=== PATIENT | male | born 1960 | race African-American/Black ===

== ENCOUNTER 2018-06-02 16:16 | Inpatient (IN) | payer MEDICAID, OTHER ==
[~2018-06-02] VITALS: Ht 190.5 cm; Wt 140.6 kg
[2018-06-02] MEDS ORDERED: LISI10TA5 PO (16:35)
[2018-06-02] MEDS ORDERED: TRAZ-213 PO (16:35)
[2018-06-02] MEDS ORDERED: HYDR25TA PO (16:35)
[2018-06-02] MEDS ORDERED: BUPR100T13 PO (16:36)
[2018-06-02] MEDS ORDERED: ASPIRIN 81MG TABLET PO ONE (17:15)
[2018-06-02] MEDS ORDERED: NITROGLYCERIN OINT 1GM/INCH UDPKT TD ONE (17:15)
[2018-06-02] MEDS ORDERED: FUROSEMIDE 40MG/4ML VIAL IV ONE (17:15)
[2018-06-02 18:11] LABS: BASOPHILS % 1.1 % (0.0-2.0); EOSINOPHILS % 3.2 % (0.0-5.0); HEMATOCRIT. 52.3 % (42.0-52.0); HEMOGLOBIN. 17.5 g/dL (14.0-18.0); LYMPHOCYTES % 23.9 % (20.0-50.0); MEAN CORPUSCULAR HEMOGLOBIN 30.4 pg (28.0-32.0); MEAN CORPUSCULAR VOLUME 91.1 fL (80.0-94.0); MEAN PLATELET VOLUME 9.1 fl (7.4-10.4); MONOCYTES % 9.3 % (2.0-8.0); NEUTROPHILS % 62.5 % (40.0-76.0); PLATELET 216 x1000/uL (130-400); RED BLOOD CELL COUNT 5.74 mill/uL (4.7-6.1); RED CELL DISTRIBUTION WIDTH 14.5 % (11.6-14.6)
[2018-06-02 18:14] LABS: CHLORIDE 103 mEq/L (98-107)
[2018-06-02 18:16] LABS: PARTIAL THROMBOPLASTIN TIME 26.9 sec (23.4-31.0); PROTHROMBIN TIME 9.7 sec (9.1-11.1)
[2018-06-02] MEDS ORDERED: ONDANSETRON HCL 4MG/2ML INJ IV PRN (19:30)
[2018-06-02] MEDS ORDERED: HYDROCODONE/ACETAMINOPHEN 5/325MG TABLET PO PRN (19:30)
[2018-06-02] MEDS ORDERED: DOCUSATE SODIUM 100MG CAPSULE PO PRN (19:30)
[2018-06-02] MEDS ORDERED: IPRATROPIUM/ALBUTEROL 0.5-3(2.5)MG/3ML NEB INH PRN (19:30)
[2018-06-02] MEDS ORDERED: LORAZEPAM 0.5MG TABLET PO PRN (19:30)
[2018-06-02] MEDS ORDERED: ACETAMINOPHEN 325MG TABLET PO PRN (19:30)
[2018-06-02 20:10] LABS: PHOSPHORUS 4.1 mg/dL (2.5-4.9)
[2018-06-02 20:11] LABS: LDL CHOLESTEROL 99 mg/dL (5-100)
[2018-06-02 20:13] LABS: CREATINE KINASE 82 IU/L (39-308); HDL CHOLESTEROL 66 mg/dL (40-59)
[2018-06-02 20:15] LABS: CREATINE KINASE MB FRACTION < 1.0 ng/mL (0.5-3.6)
[2018-06-02 20:33] LABS: CLARITY URINE CLEAR (CLEAR); COLOR URINE YELLOW (YELLOW); KETONES URINE NEGATIVE (NEGATIVE); LEUKOCYTE ESTERASE URINE NEGATIVE (NEGATIVE); NITRITE URINE NEGATIVE (NEGATIVE); OCCULT BLOOD URINE NEGATIVE (NEGATIVE); PH URINE 5.5 (4.5-8.0); PROTEIN URINE NEGATIVE (NEGATIVE); SPECIFIC GRAVITY URINE 1.013 (1.005-1.030); UROBILINOGEN URINE 0.2 E.U./dL (0.2-1.0)
[2018-06-02 20:41] LABS: METHADONE URINE SCREEN NEGATIVE (NEGATIVE); OPIATES URINE SCREEN NEGATIVE (NEGATIVE)
[2018-06-02 20:42] LABS: *AMPHETAMINES SCREEN URINE PRESUMTIVE POSITIVE (NEGATIVE); *BARBITURATES SCREEN URINE NEGATIVE (NEGATIVE); *BENZODIAZEPINES SCREEN URINE NEGATIVE (NEGATIVE); *COCAINE SCREEN URINE NEGATIVE (NEGATIVE); CANNABINOID URINE SCREEN PRESUMTIVE POSITIVE (NEGATIVE); PHENCYCLIDINE URINE SCREEN NEGATIVE (NEGATIVE)
[2018-06-03 01:39] VITALS: BP 137/87
[2018-06-03 04:00] VITALS: BP 160/105
[2018-06-03] MEDS: CLONIDINE 0.1MG TABLET PO PRN ×2 (06:02→20:51)
[2018-06-03 07:45] LABS: CHLORIDE 103 mEq/L (98-107)
[2018-06-03 07:52] LABS: BASOPHILS % 0.9 % (0.0-2.0); EOSINOPHILS % 3.6 % (0.0-5.0); HEMATOCRIT. 49.1 % (42.0-52.0); HEMOGLOBIN. 16.6 g/dL (14.0-18.0); LYMPHOCYTES % 22.8 % (20.0-50.0); MEAN CORPUSCULAR HEMOGLOBIN 30.6 pg (28.0-32.0); MEAN CORPUSCULAR VOLUME 90.6 fL (80.0-94.0); MEAN PLATELET VOLUME 9.2 fl (7.4-10.4); MONOCYTES % 9.3 % (2.0-8.0); NEUTROPHILS % 63.4 % (40.0-76.0); PLATELET 213 x1000/uL (130-400); RED BLOOD CELL COUNT 5.42 mill/uL (4.7-6.1); RED CELL DISTRIBUTION WIDTH 14.6 % (11.6-14.6)
[2018-06-03 08:00] VITALS: BP 168/101
[2018-06-03 12:00] VITALS: BP 131/95
[2018-06-03] MEDS: LISINOPRIL 10MG TABLET PO SCH (15:33)
[2018-06-03] MEDS ORDERED: ENOXAPARIN 60MG/0.6ML SYR SUBCUT SCH (15:45)
[2018-06-03 16:00] VITALS: BP 167/114
[2018-06-03] MEDS ORDERED: BUPROPION HCL 100MG TABLET PO SCH (16:00)
[2018-06-03] MEDS: BUPROPION HCL 150MG TABLET XL 24HR PO SCH (17:36)
[2018-06-03 20:00] VITALS: BP 171/122
[2018-06-03] MEDS: POTASSIUM CHLORIDE 20MEQ TABLET SR PO SCH (20:51)
[2018-06-03] MEDS: FUROSEMIDE 40MG/4ML VIAL IVP SCH (20:52)
[2018-06-03] MEDS: TRAZODONE HCL 100MG TABLET PO SCH (20:52)
[2018-06-03] MEDS: ENOXAPARIN 40MG/0.4ML SYR SUBCUT SCH (20:53)
[2018-06-04 00:02] VITALS: BP 139/85
[2018-06-04 03:55] VITALS: BP 135/89
[2018-06-04] MEDS: FUROSEMIDE 40MG/4ML VIAL IVP SCH ×2 (06:13→18:04)
[2018-06-04 08:00] VITALS: BP 127/100
[2018-06-04] MEDS: POTASSIUM CHLORIDE 20MEQ TABLET SR PO SCH ×2 (09:20→18:03)
[2018-06-04] MEDS: LISINOPRIL 10MG TABLET PO SCH (09:21)
[2018-06-04] MEDS: BUPROPION HCL 150MG TABLET XL 24HR PO SCH (09:21)
[2018-06-04] MEDS: ENOXAPARIN 40MG/0.4ML SYR SUBCUT SCH ×2 (09:22→21:19)
[2018-06-04 12:00] VITALS: BP 149/102
[2018-06-04 16:00] VITALS: BP 124/77
[2018-06-04 19:18] LABS: CHLORIDE 103 mEq/L (98-107)
[2018-06-04 20:00] VITALS: BP 156/97
[2018-06-04] MEDS: TRAZODONE HCL 100MG TABLET PO SCH (21:19)
[2018-06-05] VITALS: BP 113/84
[2018-06-05 04:00] VITALS: BP 137/80
[2018-06-05] MEDS: FUROSEMIDE 40MG/4ML VIAL IVP SCH (07:34)
[2018-06-05 08:00] VITALS: BP 117/87
[2018-06-05] MEDS: POTASSIUM CHLORIDE 20MEQ TABLET SR PO SCH (08:57)
[2018-06-05] MEDS: LISINOPRIL 10MG TABLET PO SCH (08:58)
[2018-06-05] MEDS: BUPROPION HCL 150MG TABLET XL 24HR PO SCH (08:58)
[2018-06-05] MEDS: ENOXAPARIN 40MG/0.4ML SYR SUBCUT SCH (08:59)
[2018-06-05 09:25] LABS: CHLORIDE 103 mEq/L (98-107)
[2018-06-05 12:00] VITALS: BP 149/96
[2018-06-05] MEDS ORDERED: POTA20TA82 PO (12:10)
[2018-06-05] MEDS ORDERED: FURO-151 MT (12:10)
[2018-06-05 12:29] VITALS: BP 149/96
== END 2018-06-05 13:07 | disposition home or self-care (01) | DRG 194 ==
LOC: ER 16:16 → EDBEDREQTM 19:29 → EDBEDREQ 19:29 → ENRESERV 23:38 → 7WST 06-03 00:12
PROVIDERS: ADMIT Internal Medicine; ATTEND Internal Medicine
DX: I11.0 Hypertensive heart disease with heart failure (principal); I27.20 Pulmonary hypertension, unspecified; E66.9 Obesity, unspecified; I50.33 Acute on chronic diastolic (congestive) heart failure; E78.00 Pure hypercholesterolemia, unspecified; F12.90 Cannabis use, unspecified, uncomplicated; F15.90 Other stimulant use, unspecified, uncomplicated; E78.5 Hyperlipidemia, unspecified; R07.9 Chest pain, unspecified; Z71.51 Drug abuse counseling and surveillance of drug abuser; Z79.899 Other long term (current) drug therapy; Z68.38 Body mass index [BMI] 38.0-38.9, adult
CPT/HCPCS: 36415; 71045; 80048; 80061; 80305; 82550; 82553; 83036; 83735; 83880; 84100; 84443; 84484; 85379; 93005; 93306; 94640; 96374; 99285; J1650; J1940; J7620

== ENCOUNTER 2019-06-13 15:41 | Inpatient (IN) | payer MEDICAID ==
[~2019-06-13] VITALS: Ht 190.5 cm; Wt 148.9 kg
[~2019-06-13 15:41] MED LIST: BUPR100T13 PO; FURO-151 MT; GABA-531 PO; LISI-604 PO; POTA20TA82 PO; TRAZ-252 PO
[2019-06-13 16:34] LABS: BASOPHILS % 0.8 % (0.0-2.0); EOSINOPHILS % 1.3 % (0.0-5.0); HEMATOCRIT. 46.8 % (42.0-52.0); HEMOGLOBIN. 15.3 g/dL (14.0-18.0); LYMPHOCYTES % 20.2 % (20.0-50.0); MEAN CORPUSCULAR HEMOGLOBIN 29.5 pg (28.0-32.0); MEAN CORPUSCULAR VOLUME 90.1 fL (80.0-94.0); MEAN PLATELET VOLUME 8.7 fl (7.4-10.4); MONOCYTES % 9.6 % (2.0-8.0); NEUTROPHILS % 68.1 % (40.0-76.0); PLATELET 213 x1000/uL (130-400); RED CELL DISTRIBUTION WIDTH 14.5 % (11.6-14.6)
[2019-06-13 16:39] LABS: CHLORIDE 110 mEq/L (98-107)
[2019-06-13] MEDS ORDERED: FUROSEMIDE 40MG/4ML VIAL IV ONE (17:30)
[2019-06-13] MEDS ORDERED: ASPIRIN 81MG TABLET PO ONE (17:30)
[2019-06-14 09:30] VITALS: BP 174/98
[2019-06-14 10:03] VITALS: BP 148/108
[2019-06-14] MEDS ORDERED: FLUT1BLS3 IH (10:43)
[2019-06-14] MEDS ORDERED: ACETAMINOPHEN 325MG TABLET PO PRN (11:30)
[2019-06-14] MEDS ORDERED: GUAIFENESIN 200MG/10ML SUGAR FREE UDC PO PRN (11:30)
[2019-06-14] MEDS ORDERED: CLONIDINE 0.1MG TABLET PO PRN (11:30)
[2019-06-14] MEDS ORDERED: ENOXAPARIN 40MG/0.4ML SYR SUBCUT SCH (11:30)
[2019-06-14] MEDS ORDERED: IPRATROPIUM/ALBUTEROL 0.5-3(2.5)MG/3ML NEB NEB PRN (11:30)
[2019-06-14] MEDS ORDERED: ONDANSETRON HCL 4MG/2ML INJ IV PRN (11:30)
[2019-06-14] MEDS: GABAPENTIN 300MG CAPSULE PO SCH (11:53)
[2019-06-14] MEDS: LISINOPRIL 20MG TABLET PO SCH ×2 (11:54→21:19)
[2019-06-14] MEDS: ENOXAPARIN 40MG/0.4ML SYR SUBCUT SCH (11:54)
[2019-06-14 12:00] VITALS: BP 169/114
[2019-06-14] MEDS: BUPROPION HCL 150MG SR TABLET PO SCH (13:55)
[2019-06-14 16:00] VITALS: BP 136/103
[2019-06-14 16:34] LABS: CREATINE KINASE 133 IU/L (39-308)
[2019-06-14 16:36] LABS: CREATINE KINASE MB FRACTION 1.1 ng/mL (0.5-3.6)
[2019-06-14] MEDS: FUROSEMIDE 40MG/4ML VIAL IVP SCH (16:55)
[2019-06-14 20:00] VITALS: BP 134/84
[2019-06-14] MEDS: TRAZODONE HCL 50MG TABLET PO SCH (21:18)
[2019-06-14 23:29] LABS: CREATINE KINASE 147 IU/L (39-308)
[2019-06-14 23:30] LABS: CREATINE KINASE MB FRACTION < 1.0 ng/mL (0.5-3.6)
[2019-06-15] VITALS: BP 127/88
[2019-06-15] MEDS: ENOXAPARIN 40MG/0.4ML SYR SUBCUT SCH ×2 (00:10→13:05)
[2019-06-15 04:00] VITALS: BP 153/96
[2019-06-15 07:49] LABS: CHLORIDE 103 mEq/L (98-107)
[2019-06-15 08:00] VITALS: BP 132/87
[2019-06-15 08:04] LABS: BASOPHILS % 0.6 % (0.0-2.0); EOSINOPHILS % 2.5 % (0.0-5.0); HEMATOCRIT. 45.3 % (42.0-52.0); HEMOGLOBIN. 15.2 g/dL (14.0-18.0); LYMPHOCYTES % 23.4 % (20.0-50.0); MEAN CORPUSCULAR HEMOGLOBIN 30.4 pg (28.0-32.0); MEAN CORPUSCULAR VOLUME 90.6 fL (80.0-94.0); MEAN PLATELET VOLUME 9.5 fl (7.4-10.4); MONOCYTES % 9.5 % (2.0-8.0); PLATELET 212 x1000/uL (130-400)
[2019-06-15] MEDS: FUROSEMIDE 40MG/4ML VIAL IVP SCH ×2 (09:28→17:35)
[2019-06-15] MEDS: GABAPENTIN 300MG CAPSULE PO SCH (09:28)
[2019-06-15] MEDS: LISINOPRIL 20MG TABLET PO SCH ×2 (09:28→21:33)
[2019-06-15] MEDS: BUPROPION HCL 150MG SR TABLET PO SCH (09:28)
[2019-06-15 12:00] VITALS: BP 128/77
[2019-06-15 16:00] VITALS: BP 120/84
[2019-06-15 20:00] VITALS: BP 155/98
[2019-06-15] MEDS: TRAZODONE HCL 50MG TABLET PO SCH (21:33)
[2019-06-16] VITALS: BP 128/79
[2019-06-16] MEDS: ENOXAPARIN 40MG/0.4ML SYR SUBCUT SCH ×2 (00:06→11:53)
[2019-06-16 04:00] VITALS: BP 111/81
[2019-06-16 08:00] VITALS: BP 145/73
[2019-06-16] MEDS: BUPROPION HCL 150MG SR TABLET PO SCH (10:42)
[2019-06-16] MEDS: FUROSEMIDE 40MG/4ML VIAL IVP SCH (10:43)
[2019-06-16] MEDS: GABAPENTIN 300MG CAPSULE PO SCH (10:43)
[2019-06-16] MEDS: LISINOPRIL 20MG TABLET PO SCH (10:43)
[2019-06-16 12:00] VITALS: BP 130/97
[2019-06-16 16:00] VITALS: BP 135/88
[2019-06-16 16:39] VITALS: BP 138/80
== END 2019-06-16 17:45 | disposition home or self-care (01) | DRG 194 ==
LOC: ER 15:41 → EDBEDREQTM 18:44 → EDBEDREQ 18:44 → ENRESERV 06-14 07:25 → 6WST 06-14 09:02 → ER 06-14 09:03
PROVIDERS: ADMIT Internal Medicine; ATTEND Internal Medicine
DX: I11.0 Hypertensive heart disease with heart failure (principal); E44.1 Mild protein-calorie malnutrition; Z68.41 Body mass index [BMI] 40.0-44.9, adult; E78.00 Pure hypercholesterolemia, unspecified; I50.23 Acute on chronic systolic (congestive) heart failure; E78.5 Hyperlipidemia, unspecified; J44.9 Chronic obstructive pulmonary disease, unspecified; F17.210 Nicotine dependence, cigarettes, uncomplicated; E66.9 Obesity, unspecified; R06.89 Other abnormalities of breathing; Z79.899 Other long term (current) drug therapy
CPT/HCPCS: 36415; 71045; 80048; 80053; 82550; 82553; 83880; 84484; 85025; 93005; 93970; 99285; J1650; J1940

== ENCOUNTER 2019-08-30 02:49 | Emergency (ER) | payer MEDICAID ==
[~2019-08-30] VITALS: Ht 190.5 cm; Wt 147.7 kg
[~2019-08-30 02:49] MED LIST changes: +FLUT1BLS3 IH; -POTA20TA82 PO
[2019-08-30] MEDS ORDERED: FUROSEMIDE 40MG TABLET PO ONE (06:00)
[2019-08-30] MEDS ORDERED: IPRATROPIUM/ALBUTEROL 0.5-3(2.5)MG/3ML NEB HHN ONE (06:00)
[2019-08-30 07:00] VITALS: BP 166/101
[2019-08-30] MEDS ORDERED: CEFTRIAXONE SODIUM 1 G/VIAL IM ONE (07:00)
[2019-08-30] MEDS ORDERED: LIDOCAINE HCL 1% 20ML VIAL (Pyxis) INJ INFIL ONE (07:00)
== END 2019-08-30 07:22 | disposition home or self-care (01) ==
LOC: ER 02:49
DX: J44.1 Chronic obstructive pulmonary disease with (acute) exacerbation (principal); J18.9 Pneumonia, unspecified organism; I11.0 Hypertensive heart disease with heart failure; I50.9 Heart failure, unspecified; F12.90 Cannabis use, unspecified, uncomplicated; Z79.899 Other long term (current) drug therapy
CPT/HCPCS: 71045; 93970; 94640; 96372; 99284; J0696; J3490; Z7610

== ENCOUNTER 2019-09-07 13:14 | Inpatient (IN) | payer MEDICAID ==
[~2019-09-07] VITALS: Ht 190.5 cm; Wt 154.7 kg
[2019-09-07] MEDS ORDERED: FUROSEMIDE 40MG/4ML VIAL IV ONE (14:30)
[2019-09-07] MEDS ORDERED: NITROGLYCERIN 0.4MG TABLET SL SL PRN (14:30)
[2019-09-07] MEDS ORDERED: ASPIRIN 81MG TABLET PO ONE (14:30)
[2019-09-07 14:47] LABS: BASOPHILS % 0.5 % (0.0-2.0); EOSINOPHILS % 2.3 % (0.0-5.0); HEMATOCRIT. 49.3 % (42.0-52.0); HEMOGLOBIN. 16.2 g/dL (14.0-18.0); LYMPHOCYTES % 20.9 % (20.0-50.0); MEAN CORPUSCULAR HEMOGLOBIN 30.4 pg (28.0-32.0); MEAN CORPUSCULAR VOLUME 92.4 fL (80.0-94.0); MEAN PLATELET VOLUME 8.8 fl (7.4-10.4); MONOCYTES % 8.7 % (2.0-8.0); NEUTROPHILS % 67.6 % (40.0-76.0); PLATELET 221 x1000/uL (130-400); RED BLOOD CELL COUNT 5.33 mill/uL (4.7-6.1); RED CELL DISTRIBUTION WIDTH 15.6 % (11.6-14.6)
[2019-09-07 15:02] LABS: CHLORIDE 106 mEq/L (98-107)
[2019-09-07 15:05] LABS: ETHANOL BLOOD < 10 mg/dL
[2019-09-07 16:28] LABS: *AMPHETAMINES SCREEN URINE PRESUMTIVE POSITIVE (NEGATIVE); *BARBITURATES SCREEN URINE NEGATIVE (NEGATIVE); *BENZODIAZEPINES SCREEN URINE NEGATIVE (NEGATIVE); *COCAINE SCREEN URINE NEGATIVE (NEGATIVE)
[2019-09-07 16:29] LABS: CANNABINOID URINE SCREEN PRESUMTIVE POSITIVE (NEGATIVE); METHADONE URINE SCREEN NEGATIVE (NEGATIVE); OPIATES URINE SCREEN NEGATIVE (NEGATIVE); PHENCYCLIDINE URINE SCREEN NEGATIVE (NEGATIVE)
[2019-09-07] MEDS ORDERED: DIPHENHYDRAMINE 50MG/ML VIAL IV PRN (18:00)
[2019-09-07] MEDS ORDERED: ONDANSETRON HCL 4MG/2ML INJ IV PRN (18:00)
[2019-09-07] MEDS ORDERED: CLONIDINE 0.1MG TABLET PO PRN (18:00)
[2019-09-07] MEDS ORDERED: IPRATROPIUM/ALBUTEROL 0.5-3(2.5)MG/3ML NEB HHN PRN (18:00)
[2019-09-07] MEDS ORDERED: ACETAMINOPHEN 325MG TABLET PO PRN (18:00)
[2019-09-07] MEDS ORDERED: ENOXAPARIN 40MG/0.4ML SYR SUBCUT SCH (18:00)
[2019-09-07 18:11] LABS: PHOSPHORUS 4.1 mg/dL (2.5-4.9)
[2019-09-07 23:00] VITALS: BP 150/90
[2019-09-08] MEDS ORDERED: DEXTROSE 50% WATER 50ML SYRINGE IV PRN (02:30)
[2019-09-08 04:00] VITALS: BP 172/90
[2019-09-08] MEDS: BLOOD SUGAR DIAGNOSTIC STRIP TEST SCH ×4 (06:45→21:00)
[2019-09-08] MEDS: INSULIN LISPRO 100 UNITS/ML SUBCUT SCH ×4 (06:52→21:00)
[2019-09-08 08:00] VITALS: BP 141/96
[2019-09-08] MEDS: FUROSEMIDE 40MG/4ML VIAL IV SCH ×2 (08:33→17:52)
[2019-09-08] MEDS ORDERED: ENOXAPARIN 30MG/0.3ML SYR SUBCUT SCH (09:00)
[2019-09-08 10:49] LABS: EOSINOPHILS % 3.6 % (0.0-5.0); HEMATOCRIT. 49.5 % (42.0-52.0); HEMOGLOBIN. 16.2 g/dL (14.0-18.0); LYMPHOCYTES % 21.8 % (20.0-50.0); MEAN CORPUSCULAR HEMOGLOBIN 30.1 pg (28.0-32.0); MEAN CORPUSCULAR VOLUME 92.3 fL (80.0-94.0); MONOCYTES % 9.7 % (2.0-8.0); NEUTROPHILS % 63.9 % (40.0-76.0); PLATELET 198 x1000/uL (130-400); RED BLOOD CELL COUNT 5.37 mill/uL (4.7-6.1); RED CELL DISTRIBUTION WIDTH 15.3 % (11.6-14.6)
[2019-09-08 11:06] LABS: CHLORIDE 104 mEq/L (98-107)
[2019-09-08 11:13] LABS: LDL CHOLESTEROL 69 mg/dL (5-100)
[2019-09-08 11:15] LABS: HDL CHOLESTEROL 56 mg/dL (40-59)
[2019-09-08 11:55] VITALS: BP 148/103
[2019-09-08] MEDS: LOSARTAN POTASSIUM 50 MG TABLET PO SCH (15:52)
[2019-09-08 16:00] VITALS: BP 143/93
[2019-09-08 20:00] VITALS: BP 113/66
[2019-09-08] MEDS: ENOXAPARIN 40MG/0.4ML SYR SUBCUT SCH (22:49)
[2019-09-09] VITALS: BP 131/72
[2019-09-09 04:00] VITALS: BP 131/86
[2019-09-09] MEDS: INSULIN LISPRO 100 UNITS/ML SUBCUT SCH ×3 (07:15→16:32)
[2019-09-09] MEDS: BLOOD SUGAR DIAGNOSTIC STRIP TEST SCH ×3 (07:22→16:32)
[2019-09-09 07:43] VITALS: BP 148/97
[2019-09-09] MEDS: LOSARTAN POTASSIUM 50 MG TABLET PO SCH (08:23)
[2019-09-09] MEDS: ENOXAPARIN 40MG/0.4ML SYR SUBCUT SCH (08:23)
[2019-09-09] MEDS: FUROSEMIDE 40MG/4ML VIAL IV SCH ×2 (08:23→16:32)
[2019-09-09 12:00] VITALS: BP 138/90
[2019-09-09 14:26] VITALS: BP 138/90
[2019-09-09 16:08] VITALS: BP 129/97
== END 2019-09-09 16:47 | disposition home or self-care (01) | DRG 194 ==
LOC: ER 13:14 → EDBEDREQTM 17:11 → EDBEDREQ 17:11 → ENRESERV 20:51 → 5WST 21:57
PROVIDERS: ADMIT Internal Medicine; ATTEND Emergency Medicine
DX: I11.0 Hypertensive heart disease with heart failure (principal); J96.00 Acute respiratory failure, unspecified whether with hypoxia or hypercapnia; I50.43 Acute on chronic combined systolic (congestive) and diastolic (congestive) heart failure; I42.9 Cardiomyopathy, unspecified; Z68.41 Body mass index [BMI] 40.0-44.9, adult; J44.9 Chronic obstructive pulmonary disease, unspecified; E11.9 Type 2 diabetes mellitus without complications; E66.9 Obesity, unspecified; E78.5 Hyperlipidemia, unspecified; F12.90 Cannabis use, unspecified, uncomplicated; F15.90 Other stimulant use, unspecified, uncomplicated; Z79.899 Other long term (current) drug therapy; Z87.891 Personal history of nicotine dependence
CPT/HCPCS: 36415; 71045; 80053; 80061; 80305; 80320; 82962; 83036; 83735; 83880; 84100; 84443; 84484; 85025; 93005; 93306; 93970; 99285; J1650; J1940; G0480